=== PATIENT | female | born 1950 | race Caucasian/White ===

== ENCOUNTER → 2024-01-30 | Day surgery (SDC) | payer MEDICARE, MEDICAID ==
[~2024-01-30] MED LIST: LIDOCAINE HCL 1% 10 MG/ML 10ML VIAL ONE; SODIUM BICARBONATE 4% (2.4MEQ) 5ML VIAL IV ONE
== END | disposition home or self-care (01) ==
LOC: RAD 10:57
PROVIDERS: ATTEND Family Medicine Adult Medicine
DX: E04.1 Nontoxic single thyroid nodule (principal); Z79.899 Other long term (current) drug therapy
CPT/HCPCS: 10005; J3490 ×2; Z7610 ×4

== ENCOUNTER → 2024-08-01 | Outpatient (CLI) | payer MEDICARE, MEDICAID ==
[~2024-08-01] MED LIST changes: -LIDOCAINE HCL 1% 10 MG/ML 10ML VIAL ONE; +REGADENOSON 0.4 MG/5 ML IV ONE; -SODIUM BICARBONATE 4% (2.4MEQ) 5ML VIAL IV ONE
== END | disposition home or self-care (01) ==
LOC: RAD 08:44
PROVIDERS: ATTEND Internal Medicine
DX: I10 Essential (primary) hypertension (principal); R01.1 Cardiac murmur, unspecified; I51.7 Cardiomegaly
CPT/HCPCS: 78452; 93306; 93017; J2785; A9500